=== PATIENT | female | born 1965 | race Caucasian/White ===

== ENCOUNTER 2019-08-08 10:41 | Inpatient (IN) ==
[2019-08-08] MEDS ORDERED: REGLAN ONE (10:51)
[2019-08-08] MEDS ORDERED: KEFZOL 1 GM/D5W 2 GM/100 ML IVPB ONE (10:51)
[2019-08-08] MEDS ORDERED: PEPCID ONE (10:51)
[2019-08-08] MEDS ORDERED: LR 1,000 ML ONE ×2 (10:51→15:40)
[2019-08-08] MEDS ORDERED: TRANSDERM-SCOP ONE (11:06)
[2019-08-08] MEDS ORDERED: SENSORCAINE 0.25%/EPI 1:200,000 ONE (11:40)
[2019-08-08] MEDS ORDERED: DIPRIVAN 1% ONE ×2 (11:45→13:35)
[2019-08-08] MEDS ORDERED: ROBINUL ONE ×2 (11:48→12:48)
[2019-08-08] MEDS ORDERED: XYLOCAINE-MPF 2% ONE (11:48)
[2019-08-08] MEDS ORDERED: ZOFRAN ONE (12:16)
[2019-08-08] MEDS ORDERED: ZEMURON ONE ×3 (12:16→13:07)
[2019-08-08] MEDS ORDERED: DECADRON ONE (12:16)
[2019-08-08] MEDS ORDERED: TORADOL ONE (12:16)
[2019-08-08] MEDS ORDERED: FENTANYL ONE (12:32)
[2019-08-08] MEDS ORDERED: NEOSTIGMINE ONE (12:48)
[2019-08-08 13:08] LABS: URINE SOURCE CATH
[2019-08-08] MEDS ORDERED: OFIRMEV 1000 MG/ISOTONIC SOLN 1,000 MG/100 ML BOTTLE ONE (13:08)
[2019-08-08 13:12] LABS: BILIRUBIN URINE NEGATIVE (NEGATIVE); BLOOD URINE NEGATIVE (NEGATIVE); COLOR STRAW; GLUCOSE URINE NEGATIVE (NEGATIVE); KETONE URINE NEGATIVE (NEGATIVE); LEUKOCYTES URINE NEGATIVE (NEGATIVE); NITRITE URINE NEGATIVE (NEGATIVE); PROTEIN URINE NEGATIVE (NEGATIVE); SP GRAVITY URINE 1.011; TURBIDITY URINE CLEAR (CLEAR); UR EPITHELIAL CELLS <10 /HPF (<10); URINE BACTERIA NEGATIVE /HPF; URINE RBC <10 /HPF (<10); URINE WBC <10 /HPF (<10); UROBILINOGEN URINE NORMAL (NORMAL)
[2019-08-08] MEDS: DILAUDID ONE ×4 (15:40→15:57)
[2019-08-08] MEDS ORDERED: PHENERGAN ONE (15:52)
[2019-08-08] MEDS ORDERED: DILAUDID IV PRN (16:23)
[2019-08-08] MEDS ORDERED: ZOFRAN IV PRN (16:23)
[2019-08-08] MEDS: LR 1,000 ML IV SCH (18:54)
[2019-08-08] MEDS: COLACE PO SCH (21:10)
[2019-08-08] MEDS: LEXAPRO PO SCH (21:11)
[2019-08-08] MEDS: PERIDEX MT SCH (21:11)
[2019-08-08] MEDS: ULTRAM PO PRN (21:11)
--- NOTE | 2019-08-08 22:02 | OPERATIVE NOTE ---
PROCEDURE DATE: 08/08/2019 PREOPERATIVE DIAGNOSES: 1. Incisional hernia, periumbilical. 2. Colon carcinoma. POSTOPERATIVE DIAGNOSIS: 1. Incisional hernia, periumbilical. 2. Colon carcinoma. PROCEDURES PERFORMED: 1. Open repair of incisional hernia with Bard Ventralex ST mesh. 2. Right internal jugular vein port removal. 3. Repair of incarcerated hernia. ESTIMATED BLOOD LOSS: 50 mL. SPECIMENS: Hernia sac. INDICATIONS: This is a female who underwent a descending colectomy for colon cancer several years ago. She had adjuvant therapy and throughout that developed an incisional hernia that was reducible but contained several loops of small bowel. She has also requested a port removal. She has completed her adjuvant therapy. OPERATIVE FINDINGS: There was a supraumbilical midline hernia in superior aspect of her incision. There was no evidence of strangulation. There was some incarcerated omentum. There was significant diastasis and splaying of the linea alba inferior to the hernia defect and there was a smaller defect superior to this. OPERATIVE NOTE: Risks, benefits, and alternatives were discussed with the patient and she consented to the procedure. She was seen preoperatively. Surgical site was confirmed. She was taken to the operating room and placed in supine position. General anesthesia was induced without complication. All bony prominences were padded. Her abdomen was prepped with chlorhexidine solution after a Eaton catheter was placed and draped in usual fashion with Ioban drapes. We then elevated the skin overlying the hernia, made an incision through her previous scar and carried this down, dissecting the hernia sac out widely. [place] as though the small bowel was completely reduced. We opened the hernia sac and identified our defects in each direction. We continued our dissection inferiorly. The midline fascia was quite splayed and very thin. Although there was no other discrete hernia defect at this location, we elected to extend our incision site and excise this attenuated fascia back to healthy rectus sheath and fascia. We reapproximated in the midline easily. We did create subcutaneous flaps on top of the fascia laterally. We measured our defect. We selected an oval Bard mesh with the ST antiadhesion coating that would allow for at least a 3 cm overlap in each direction. We positioned this mesh, unfurling it in each direction and using then using circumferential horizontal mattress 0 PDS sutures, we secured the mesh in an underlay fashion. The midline fascia was then debrided back to healthy fascia and was closed with 0 Prolene sutures along the midline. There was no tension and we had a good approximation of the fascia. After confirming hemostasis, we placed a drain through a lateral stab incision into the subcutaneous defect, tacked down the umbilical stalk with Vicryl suture and closed the skin with surgical clips after closing the deep Maritza's layer with 3-0 Vicryl. A gauze Medipore dressing and abdominal binder was applied. Her right neck and chest was then prepped with Betadine and draped in the usual fashion. We made incision through her previous scar. We incised the fibrous capsule encompassing the port and removed it holding pressure at the neck. She was placed in reverse Trendelenburg at this time and hemostasis was noted. Local anesthetic was infiltrated. The dermis was closed with 3-0 Vicryl. Skin was closed with 4-0 Monocryl. Dermabond was applied. Counts were correct. She will be transferred to recovery. I spoke with the family. cc: Thanh Alexander MD
[2019-08-09] MEDS: LR 1,000 ML IV SCH ×4 (02:25→23:57)
[2019-08-09] MEDS: ULTRAM PO PRN (03:56)
[2019-08-09] MEDS: SYNTHROID PO SCH (07:19)
[2019-08-09] MEDS: PERIDEX MT SCH ×2 (08:41→21:51)
[2019-08-09] MEDS: ROBAXIN 500 MG in NS 50 ML IV SCH ×3 (08:41→23:57)
[2019-08-09] MEDS: NORCO-7.5 PO PRN ×4 (09:46→21:51)
[2019-08-09] MEDS: LOVENOX SUBQ SCH (13:08)
--- NOTE | 2019-08-09 20:31 | GENERAL SURGERY PROGRESS NOTE ---
DATE: 08/09/2019 SUBJECTIVE: Doing well/ she is quite sore. She is sitting in the chair. No fevers. No tachycardia. OBJECTIVE: Vital signs: Blood pressure 110/48. Oxygen saturation is 96%. She is on room air. General: She is alert. Abdomen: Soft. ABBY drain serosanguineous. Her port site is clean and flat. LABS: No new labs this morning. ASSESSMENT AND PLAN: A 54-year-old female status post incisional hernia repair with mesh, doing well. We will discontinue her Eaton. I have started her on scheduled Robaxin. Otherwise, we will continue oral pain medication with breakthrough as needed. She is on a soft diet, but I have encouraged her to go slowly. cc: Thanh Alexander MD
[2019-08-09] MEDS: LEXAPRO PO SCH (21:51)
[2019-08-09] MEDS: COLACE PO SCH (21:51)
[2019-08-10] MEDS: ULTRAM PO PRN (03:40)
[2019-08-10] MEDS: SYNTHROID PO SCH (06:57)
[2019-08-10] MEDS: ROBAXIN 500 MG in NS 50 ML IV SCH ×2 (09:07→16:19)
[2019-08-10] MEDS: LR 1,000 ML IV SCH ×3 (09:08→21:13)
[2019-08-10] MEDS: PERIDEX MT SCH ×2 (09:08→21:13)
[2019-08-10 09:28] LABS: AGAP 8; BUN 9 mg/dL (8-22); CALCIUM 8.7 mg/dL (8.8-10.2); CHLORIDE 101 mmol/L (98-107); COSMO 277; CREATININE 0.7 mg/dL (0.5-0.9); ESTIMATED GFR > 60; GLUCOSE 114 mg/dL (70-104); MAGNESIUM 1.6 mg/dL (1.5-2.7); POTASSIUM 4.1 mmol/L (3.5-5.1); SODIUM 139 mmol/L (136-145); TCO2 30 mmol/L (25-35)
[2019-08-10 10:27] LABS: BASO# 0.02 X1000 (0.0-0.2); BASO% 0.2 % (0.0-0.8); EOS# 0.05 X1000 (0.0-0.7); EOS% 0.5 % (0.0-10.0); HEMATOCRIT 32.8 % (37.0-47.0); HEMOGLOBIN 10.1 g/dL (12.0-16.0); LYMPH# 1.32 X1000 (1.2-3.4); LYMPH% 12.7 % (20.5-51.1); MCH 29.4 PG (27-31); MCHC 30.8 g/dL (33-37); MCV 95.6 FL (81-99); MONO# 0.78 X1000 (0.11-0.59); MONO% 7.5 % (1.7-9.3); MPV 11.3 FL (7.4-10.4); NEUT# 8.21 X1000 (1.4-6.5); NEUT% 79.1 % (42.2-75.2); PLT 171 X1000 (130-400); RBC 3.43 XMIL (4.2-5.4); RDW 13.4 % (11.5-14.5); WBC 10.38 X1000 (4.8-10.8)
[2019-08-10] MEDS: LOVENOX SUBQ SCH (13:28)
[2019-08-10] MEDS: MAG-OX PO SCH (14:17)
[2019-08-10] MEDS: COLACE PO SCH (21:12)
[2019-08-10] MEDS: LEXAPRO PO SCH (21:13)
--- NOTE | 2019-08-10 21:46 | GENERAL SURGERY PROGRESS NOTE ---
DATE: 08/10/2019 SUBJECTIVE: She still feels kind of weak and sore. No nausea. Bowel is not really working yet. No fevers. OBJECTIVE: Pulse is 78, blood pressure 102/57, oxygen saturation 100% on 2-3 L. Generally she is alert. Abdomen is soft. Incision is intact. No recurrent hernia. ABBY drain is serosanguineous. LABORATORY DATA: White count is 10, hematocrit 32. Creatinine 0.7. ASSESSMENT AND PLAN: A 54-year-old female status post incisional hernia repair with mesh, doing okay. A little bit of an ileus. We will go slow with her p.o. I started her on oral magnesium replacement. Her fluids are down. We will decrease her fluids to 50. She is on prophylactic Lovenox. I have encouraged her to be out of bed and ambulating. We will keep her abdominal binder in place. cc: Thanh Alexander MD
[2019-08-11] MEDS: ROBAXIN 500 MG in NS 50 ML IV SCH ×4 (00:19→23:35)
[2019-08-11] MEDS: SYNTHROID PO SCH (06:35)
[2019-08-11] MEDS: MAG-OX PO SCH (09:24)
[2019-08-11] MEDS: PERIDEX MT SCH ×2 (09:24→20:52)
[2019-08-11] MEDS: LOVENOX SUBQ SCH (15:08)
[2019-08-11] MEDS: LR 1,000 ML IV SCH ×2 (17:58→23:35)
[2019-08-11] MEDS: LEXAPRO PO SCH (20:52)
[2019-08-11] MEDS: COLACE PO SCH (20:52)
--- NOTE | 2019-08-12 00:30 | GENERAL SURGERY PROGRESS NOTE ---
DATE: 08/11/2019 SUBJECTIVE: She states she feels much better and less sore, passing gas. No vomiting. She tolerated a diet. Afebrile, pulse 86, blood pressure 117/64. General: She is alert. Her abdomen is soft, less distended. Abdominal binder is in place. I reviewed her labs from yesterday. ASSESSMENT AND PLAN: This is a 54-year-old female status post incisional hernia repair. She is doing okay. Pain is controlled. She feels much better with return of bowel function. We will plan on home tomorrow. cc: Thanh Alexander MD
[2019-08-12] MEDS: SYNTHROID PO SCH (06:30)
[2019-08-12] MEDS: MAG-OX PO SCH (09:27)
[2019-08-12] MEDS: PERIDEX MT SCH (09:27)
[2019-08-12] MEDS: ROBAXIN 500 MG in NS 50 ML IV SCH (09:27)
[2019-08-12 11:25] VITALS: BP 121/59
--- NOTE | 2019-08-13 00:33 | DISCHARGE SUMMARY ---
ADMISSION DATE: 08/08/2019 DISCHARGE DATE: 08/12/2019 PREOPERATIVE DIAGNOSIS: Incisional hernia. POSTOP: Incisional hernia. PROCEDURE PERFORMED: Incisional hernia repair with mesh. HISTORY OF PRESENT ILLNESS: This 54-year-old female had a colectomy for a left-sided colon cancer a couple years ago. She underwent adjuvant therapy and developed an incisional hernia. HOSPITAL COURSE: The patient was taken to the operating room on 08/08/2019 for above procedure. For details, please see dictated operative note. Postoperatively, pain control was managed with IV pain medication as well as oral and IV muscle relaxant. Eaton was removed on day 1. She was able to void and she did have a bit of an ileus but this resolved by postop day 2. Her diet was advanced. She tolerated this well. Her incision was intact. ABBY drain output was an appropriate amount but serosanguineous. There was no evidence of recurrent hernia. She was felt safe for discharge. Follow up appointment with me next week or when her drain output is less than 30 mL for 2 consecutive days. She was given written instructions on care of this and these were discussed with her. MEDICATIONS: She will take Tylenol and ibuprofen as this is what she requested and resume her other medications. DIET: She will continue with a GI soft diet. cc: Thanh Alexander MD
== END 2019-08-12 15:31 | disposition home or self-care (01) | DRG 355 ==
LOC: 4N 10:41 → OR 10:41 → OBSVTOIN 13:15
PROVIDERS: ADMIT Surgery; ATTEND Surgery